=== PATIENT | male | born 1990 | race Hispanic/Latino ===

== ENCOUNTER 2018-05-25 21:38 | Emergency (ER) | payer SELFPAY ==
[2018-05-25 23:30] LABS: #Basophils 0.1 thou/uL (0.0-0.2); #Eosinphils 0.7 thou/uL (0.0-0.7); #Lymphocytes 3.1 thou/uL (1.20-3.40); #Monocytes 0.4 thou/uL (0.11-0.59); #Neutrophils 2.8 thou/uL (1.40-6.50); %Basophils 1.4 % (0.0-1.0); %Eosinophils 9.7 % (0.0-10.0); %Lymphocytes 43.9 % (21.0-51.0); %Monocytes 5.6 % (0.0-10.0); %Neutrophils 39.4 % (42.0-75.0); Hemoglobin 14.6 g/dL (14.0-18.0); Mean Corpuscular HGB CONC 33.5 g/dL (32.0-36.0); Mean Corpuscular Hemoglobin 30.3 pg (27.0-31.0); Mean Corpuscular Volume 90.4 fL (78.0-98.0); Mean Platelet Volume 8.3 fL (7.4-10.4); Platelet Count 230 thou/uL (130-400); RBC Distribution Width 11.9 % (11.5-14.5); Red Blood Cell (RBC) Count 4.81 mill/uL (4.70-6.10); White Blood Cell (WBC) Count 7.1 thou/uL (4.8-10.8)
[2018-05-25 23:48] LABS: ALT (SGPT) 18 U/L (8-55); AST (SGOT) 18 U/L (5-34); Alkaline Phosphatase 100 U/L (40-150); Anion Gap 12 mmol/L (10-20); BUN (Urea Nitrogen) 12 mg/dL (8.9-20.6); Bilirubin, Total 0.3 mg/dL (0.2-1.2); Calc. Creatinine Clearance 0 mL/min (70-130); Calcium 9.2 mg/dL (7.8-10.44); Carbon Dioxide 23 mmol/L (22-29); Chloride 108 mmol/L (98-107); Estimated GFR-MDRD Greater than 90; Globulin 2.5 g/dL (2.4-3.5); Glucose 127 mg/dL (70-105); Potassium 3.6 mmol/L (3.5-5.1); Protein, Total 6.5 g/dL (6.0-8.3); Sodium 139 mmol/L (136-145)
[2018-05-26] MEDS ORDERED: Ketorolac Tromethamine 30 MG/ML VIAL ONE (00:06)
[2018-05-26] MEDS ORDERED: Morphine 4 MG/ML VIAL ONE (00:06)
[2018-05-26] MEDS ORDERED: Dexamethasone 10 MG/ML VIAL ONE (01:05)
--- NOTE | 2018-05-26 07:48 | MRI ---
MRI OF THORACIC SPINE: INDICATION: Intractable back pain. FINDINGS: There is a chronic mild anterior wedge deformity of T8, which results in focal kyphosis of the midtho racic spine. T2-3 level reveals a right paracentral disk protrusion, which encroaches upon the right ventral hemic ord without significant cord deformity. No high-grade central canal stenosis at the T1-2, T3-4, T4-5 , T5-6, or T6-7 levels. T7-8 level reveals right asymmetric broad-based disk-osteophyte with diffuse narrowing of the disk sp lady, which is related to the above-described T8 compression deformity. Resultant ventral cord flatti ng and mass effect is present. There is also a component of intramedullary T2 signal localizing to t he anterior aspect of the spinal cord at the T7-8 level. T9-10: Left asymmetric osteophyte formation with ventral cord effacement. No significant central ca nal stenosis of T9-10, T10-11, or T11-12 level. There is no significant paraspinous soft tissue edema or fluid collection. No acute disk space edema . IMPRESSION: 1. 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 No a ssociated marrow edema. There is focal kyphosis with associated broad-based osteophyte ridge which d oes efface the ventral aspect of the thoracic spinal cord at the T7-8 level with associated abnormal T2 intramedullary hyperintensity and cord volume loss. 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 2. Additional details are described above. POS: [facility]
--- NOTE | 2018-05-26 07:57 | MRI ---
LUMBAR SPINE MRI NONCONTRAST: INDICATION: A 27-year-old male with progressive, intractable low back pain. FINDINGS: The conus medullaris is normal in morphology, terminating at the L1 level. There is loss of normal T 2 signal of the L4-5 and L5-S1 intervertebral disk. At L1-2, L2-3, and L3-4 levels, there is no sign ificant disk bulge or herniation. 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 L4-5: There is a moderate to large left paracentral disk protrusion with severe central canal stenos is, and impingement upon nerve roots of cauda equina. There is mild narrowing of each neural foramen . L5-S1: There is a moderate to large broad-based disk protrusion spanning the right paracentral to le ft subarticular zone. This does impinge the traversing S1 nerve root and crowd the right traversing S1 nerve root. There is moderate compromise of the terminal thecal sac and moderate left and mild to moderate right neural foraminal narrowing. No acute compression fracture. No significant subluxati on. No acute abnormality of the visualized retroperitoneum. IMPRESSION: Moderate to large disk protrusions at L4-5 and L5-S1 with associated compromise of the central canal and nerve roots as discussed above. POS: [facility]
== END 2018-05-26 02:25 | disposition home or self-care (01) ==
LOC: ERS 21:38
DX: M54.5 Low back pain (principal); G89.29 Other chronic pain; F17.210 Nicotine dependence, cigarettes, uncomplicated
CPT/HCPCS: 36415; 72146; 72148; 80053; 85025; 96374; 96375; J1100; J1885; J2270

== ENCOUNTER 2024-08-27 00:28 | Inpatient (IN) | payer OTHER, SELFPAY ==
[2024-08-27 01:03] LABS: #Basophils 0.10 10x3/uL (0.0-0.2); #Eosinophils 0.19 10x3/uL (0.0-0.7); #Monocytes 0.62 10x3/uL (0.11-0.59); #Neutrophils 4.57 10x3/uL (1.40-6.50); %Basophils 1.2 % (0.0-1.0); %Eosinophils 2.2 % (0.0-10.0); %Lymphocytes 35.2 % (21.0-51.0); %Monocytes 7.3 % (0.0-10.0); %Neutrophils 53.6 % (42.0-75.0); Hematocrit 44.8 % (42.0-52.0); Hemoglobin 14.9 g/dL (14.0-18.0); Mean Corpuscular Hemoglobin 27.5 pg (27.0-31.0); Mean Corpuscular Volume 82.7 fL (78.0-98.0); Platelet Count 247 10x3/uL (130-400); Red Blood Cell (RBC) Count 5.42 mill/uL (4.70-6.10); White Blood Cell (WBC) Count 8.52 10x3/uL (4.8-10.8)
[2024-08-27 01:16] LABS: ALT (SGPT) 30 U/L (Less than 45); AST (SGOT) 42 U/L (11-34); Albumin 4.5 g/dL (3.1-4.5); Alkaline Phosphatase 105 U/L (40-110); Anion Gap 17 mmol/L (10-20); BUN (Urea Nitrogen) 35 mg/dL (8.9-20.6); Bilirubin, Total 0.6 mg/dL (0.3-1.2); Calc. Creatinine Clearance 0 mL/min (70-130); Calcium 9.0 mg/dL (7.8-10.44); Carbon Dioxide 23 mmol/L (22-29); Chloride 98 mmol/L (98-107); Globulin 3.3 g/dL (2.4-3.5); Glucose 110 mg/dL (70-105); Lipase 26 U/L (8-78); Magnesium 1.9 mg/dL (1.6-2.6); Potassium 4.3 mmol/L (3.5-5.1); Sodium 134 mmol/L (136-145)
[2024-08-27] MEDS ORDERED: Furosemide 40 MG (4 mL) VIAL ONE (01:17)
[2024-08-27 01:18] LABS: Troponin I 0.022 ng/mL (< 0.028)
[2024-08-27] MEDS ORDERED: Acetaminophen 500 MG TAB ONE (02:06)
[2024-08-27] MEDS ORDERED: Ondansetron PF 4 MG/2 ML Vial IVP PRN (02:36)
[2024-08-27] MEDS ORDERED: Electrolyte Replacement Protocol 1 EACH FS SCH (03:00)
[2024-08-27 03:38] VITALS: BMI 36.3
[2024-08-27 06:06] LABS: #Basophils 0.10 10x3/uL (0.0-0.2); #Eosinophils 0.23 10x3/uL (0.0-0.7); #Monocytes 0.58 10x3/uL (0.11-0.59); #Neutrophils 4.08 10x3/uL (1.40-6.50); %Basophils 1.2 % (0.0-1.0); %Eosinophils 2.8 % (0.0-10.0); %Lymphocytes 38.2 % (21.0-51.0); %Monocytes 7.1 % (0.0-10.0); %Neutrophils 50.1 % (42.0-75.0); Hematocrit 41.1 % (42.0-52.0); Hemoglobin 13.7 g/dL (14.0-18.0); Mean Corpuscular Hemoglobin 27.5 pg (27.0-31.0); Mean Corpuscular Volume 82.5 fL (78.0-98.0); Platelet Count 223 10x3/uL (130-400); Red Blood Cell (RBC) Count 4.98 mill/uL (4.70-6.10); White Blood Cell (WBC) Count 8.15 10x3/uL (4.8-10.8)
[2024-08-27] MEDS: Furosemide 40 MG (4 mL) VIAL SLOW IVP SCH (06:08)
[2024-08-27 06:11] LABS: Anion Gap 16 mmol/L (10-20); BUN (Urea Nitrogen) 35 mg/dL (8.9-20.6); Calc. Creatinine Clearance 149 mL/min (70-130); Calcium 9.1 mg/dL (7.8-10.44); Carbon Dioxide 24 mmol/L (22-29); Chloride 97 mmol/L (98-107); Glucose 92 mg/dL (70-105); Magnesium 1.9 mg/dL (1.6-2.6); Potassium 3.6 mmol/L (3.5-5.1); Sodium 133 mmol/L (136-145); Troponin I 0.019 ng/mL (< 0.028)
[2024-08-27 08:32] LABS: Troponin I 0.014 ng/mL (< 0.028)
[2024-08-27] MEDS: Magnesium 2 GM/50 ML(in water) 2 GM in Premix 1 BAG IVPB SCH (08:47)
[2024-08-27] MEDS: Sacubitril 24MG/Valsartan 26 MG TAB PO SCH (08:48)
[2024-08-27] MEDS: Famotidine 20 MG TAB PO SCH (08:49)
[2024-08-27] MEDS: Apixaban 5 MG TAB PO SCH (08:49)
[2024-08-27 12:41] LABS: Cocaine Metabolite Screen Negative (Negative); THC/Cannabinoid Screen Negative (Negative); Tricyclic Screen PRELIM POSITIVE (Negative)
[2024-08-27] MEDS: HYDROcodone/Acetaminophen 7.5/325 mg Tablet PO PRN (13:38)
[2024-08-27] MEDS: Carvedilol 3.125 MG TAB PO SCH (17:40)
[2024-08-28] MEDS: Cyclobenzaprine 10 MG TAB PO PRN (01:36)
[2024-08-28 06:26] LABS: #Basophils 0.10 10x3/uL (0.0-0.2); #Eosinophils 0.37 10x3/uL (0.0-0.7); #Monocytes 0.44 10x3/uL (0.11-0.59); #Neutrophils 2.96 10x3/uL (1.40-6.50); %Basophils 1.5 % (0.0-1.0); %Eosinophils 5.5 % (0.0-10.0); %Lymphocytes 41.6 % (21.0-51.0); %Monocytes 6.6 % (0.0-10.0); %Neutrophils 44.4 % (42.0-75.0); Hematocrit 44.7 % (42.0-52.0); Hemoglobin 14.3 g/dL (14.0-18.0); Mean Corpuscular Hemoglobin 26.7 pg (27.0-31.0); Mean Corpuscular Volume 83.6 fL (78.0-98.0); Platelet Count 223 10x3/uL (130-400); Red Blood Cell (RBC) Count 5.35 mill/uL (4.70-6.10); White Blood Cell (WBC) Count 6.68 10x3/uL (4.8-10.8)
[2024-08-28 06:41] LABS: Anion Gap 16 mmol/L (10-20); BUN (Urea Nitrogen) 39 mg/dL (8.9-20.6); Calc. Creatinine Clearance 146 mL/min (70-130); Calcium 9.0 mg/dL (7.8-10.44); Carbon Dioxide 24 mmol/L (22-29); Chloride 96 mmol/L (98-107); Glucose 121 mg/dL (70-105); Magnesium 2.3 mg/dL (1.6-2.6); Potassium 3.9 mmol/L (3.5-5.1); Sodium 132 mmol/L (136-145)
[2024-08-28] MEDS: Spironolactone 25 MG TAB PO SCH (08:48)
[2024-08-28] MEDS: HYDROcodone/Acetaminophen 10/325 mg Tablet PO PRN (16:50)
[2024-08-29 05:54] LABS: #Basophils 0.08 10x3/uL (0.0-0.2); #Eosinophils 0.28 10x3/uL (0.0-0.7); #Monocytes 0.39 10x3/uL (0.11-0.59); #Neutrophils 3.35 10x3/uL (1.40-6.50); %Basophils 1.2 % (0.0-1.0); %Eosinophils 4.3 % (0.0-10.0); %Lymphocytes 35.9 % (21.0-51.0); %Monocytes 6.1 % (0.0-10.0); %Neutrophils 52.0 % (42.0-75.0); Hematocrit 39.3 % (42.0-52.0); Hemoglobin 13.0 g/dL (14.0-18.0); Mean Corpuscular Hemoglobin 27.6 pg (27.0-31.0); Mean Corpuscular Volume 83.4 fL (78.0-98.0); Platelet Count 208 10x3/uL (130-400); Red Blood Cell (RBC) Count 4.71 mill/uL (4.70-6.10); White Blood Cell (WBC) Count 6.44 10x3/uL (4.8-10.8)
[2024-08-29 06:29] LABS: Anion Gap 15 mmol/L (10-20); BUN (Urea Nitrogen) 38 mg/dL (8.9-20.6); Calc. Creatinine Clearance 156 mL/min (70-130); Calcium 8.9 mg/dL (7.8-10.44); Carbon Dioxide 23 mmol/L (22-29); Chloride 96 mmol/L (98-107); Glucose 117 mg/dL (70-105); Magnesium 2.0 mg/dL (1.6-2.6); Potassium 3.4 mmol/L (3.5-5.1); Sodium 131 mmol/L (136-145)
[2024-08-29] MEDS: Magnesium 2 GM/50 ML(in water) 2 GM in Premix 1 BAG IVPB SCH (07:49)
[2024-08-30] MEDS: Transdermal Patch Removal LIDOCAINE TOP SCH (04:11)
[2024-08-30 09:41] LABS: Anion Gap 16 mmol/L (10-20); BUN (Urea Nitrogen) 34 mg/dL (8.9-20.6); Calc. Creatinine Clearance 159 mL/min (70-130); Calcium 9.0 mg/dL (7.8-10.44); Carbon Dioxide 24 mmol/L (22-29); Chloride 96 mmol/L (98-107); Glucose 89 mg/dL (70-105); Magnesium 2.1 mg/dL (1.6-2.6); Potassium 4.0 mmol/L (3.5-5.1); Sodium 132 mmol/L (136-145)
[2024-08-30] MEDS: Furosemide 40 MG (4 mL) VIAL SLOW IVP SCH (12:12)
[2024-08-30] MEDS: Acetaminophen 325 MG TAB PO PRN (17:14)
[2024-08-30] MEDS ORDERED: Furosemide 40 MG (4 mL) VIAL SLOW IVP SCH (21:00)
[2024-08-30] MEDS: Ketorolac Tromethamine 30 MG (1 mL) VIAL IVP SCH (23:32)
[2024-08-31] MEDS: Furosemide 40 MG (4 mL) VIAL SLOW IVP SCH (05:26)
[2024-08-31 06:05] LABS: Anion Gap 15 mmol/L (10-20); BUN (Urea Nitrogen) 40 mg/dL (8.9-20.6); Calc. Creatinine Clearance 137 mL/min (70-130); Calcium 8.9 mg/dL (7.8-10.44); Carbon Dioxide 24 mmol/L (22-29); Chloride 97 mmol/L (98-107); Glucose 102 mg/dL (70-105); Magnesium 2.2 mg/dL (1.6-2.6); Potassium 3.5 mmol/L (3.5-5.1); Sodium 132 mmol/L (136-145)
[2024-09-01 05:24] LABS: #Basophils 0.08 10x3/uL (0.0-0.2); #Eosinophils 0.44 10x3/uL (0.0-0.7); #Monocytes 0.56 10x3/uL (0.11-0.59); #Neutrophils 4.16 10x3/uL (1.40-6.50); %Basophils 1.1 % (0.0-1.0); %Eosinophils 6.2 % (0.0-10.0); %Lymphocytes 26.4 % (21.0-51.0); %Monocytes 7.8 % (0.0-10.0); %Neutrophils 58.2 % (42.0-75.0); Hematocrit 42.2 % (42.0-52.0); Hemoglobin 13.6 g/dL (14.0-18.0); Mean Corpuscular Hemoglobin 27.6 pg (27.0-31.0); Mean Corpuscular Volume 85.6 fL (78.0-98.0); Platelet Count 170 10x3/uL (130-400); Red Blood Cell (RBC) Count 4.93 mill/uL (4.70-6.10); White Blood Cell (WBC) Count 7.15 10x3/uL (4.8-10.8)
[2024-09-01 05:40] LABS: Anion Gap 13 mmol/L (10-20); BUN (Urea Nitrogen) 35 mg/dL (8.9-20.6); Calc. Creatinine Clearance 159 mL/min (70-130); Calcium 9.3 mg/dL (7.8-10.44); Carbon Dioxide 27 mmol/L (22-29); Chloride 97 mmol/L (98-107); Glucose 97 mg/dL (70-105); Magnesium 2.1 mg/dL (1.6-2.6); Potassium 4.0 mmol/L (3.5-5.1); Sodium 133 mmol/L (136-145)
[2024-09-01] MEDS: Amoxicillin/Potassium Clav 875 MG TAB PO SCH (09:26)
[2024-09-02 06:01] LABS: #Basophils 0.08 10x3/uL (0.0-0.2); #Eosinophils 0.50 10x3/uL (0.0-0.7); #Monocytes 0.51 10x3/uL (0.11-0.59); #Neutrophils 4.52 10x3/uL (1.40-6.50); %Basophils 1.1 % (0.0-1.0); %Eosinophils 6.7 % (0.0-10.0); %Lymphocytes 24.8 % (21.0-51.0); %Monocytes 6.8 % (0.0-10.0); %Neutrophils 60.2 % (42.0-75.0); Hematocrit 43.6 % (42.0-52.0); Hemoglobin 14.0 g/dL (14.0-18.0); Mean Corpuscular Hemoglobin 26.7 pg (27.0-31.0); Mean Corpuscular Volume 83.2 fL (78.0-98.0); Platelet Count 172 10x3/uL (130-400); Red Blood Cell (RBC) Count 5.24 mill/uL (4.70-6.10); White Blood Cell (WBC) Count 7.50 10x3/uL (4.8-10.8)
[2024-09-02 06:22] LABS: Anion Gap 14 mmol/L (10-20); BUN (Urea Nitrogen) 33 mg/dL (8.9-20.6); Calc. Creatinine Clearance 160 mL/min (70-130); Calcium 9.7 mg/dL (7.8-10.44); Carbon Dioxide 25 mmol/L (22-29); Chloride 97 mmol/L (98-107); Glucose 95 mg/dL (70-105); Potassium 4.0 mmol/L (3.5-5.1); Sodium 132 mmol/L (136-145)
[2024-09-03 05:15] LABS: #Basophils 0.06 10x3/uL (0.0-0.2); #Eosinophils 0.49 10x3/uL (0.0-0.7); #Monocytes 0.53 10x3/uL (0.11-0.59); #Neutrophils 3.34 10x3/uL (1.40-6.50); %Basophils 0.9 % (0.0-1.0); %Eosinophils 7.6 % (0.0-10.0); %Lymphocytes 31.4 % (21.0-51.0); %Monocytes 8.2 % (0.0-10.0); %Neutrophils 51.6 % (42.0-75.0); Hematocrit 40.1 % (42.0-52.0); Hemoglobin 13.3 g/dL (14.0-18.0); Mean Corpuscular Hemoglobin 27.5 pg (27.0-31.0); Mean Corpuscular Volume 82.9 fL (78.0-98.0); Platelet Count 172 10x3/uL (130-400); Red Blood Cell (RBC) Count 4.84 mill/uL (4.70-6.10); White Blood Cell (WBC) Count 6.47 10x3/uL (4.8-10.8)
[2024-09-03 05:32] LABS: Anion Gap 16 mmol/L (10-20); BUN (Urea Nitrogen) 32 mg/dL (8.9-20.6); Calc. Creatinine Clearance 141 mL/min (70-130); Calcium 9.2 mg/dL (7.8-10.44); Carbon Dioxide 22 mmol/L (22-29); Chloride 98 mmol/L (98-107); Glucose 116 mg/dL (70-105); Potassium 4.1 mmol/L (3.5-5.1); Sodium 132 mmol/L (136-145)
[2024-09-03] MEDS ORDERED: Furosemide 100 MG (10 mL) VIAL SLOW IVP SCH (18:31)
[2024-09-04 06:27] LABS: #Basophils 0.06 10x3/uL (0.0-0.2); #Eosinophils 0.42 10x3/uL (0.0-0.7); #Monocytes 0.59 10x3/uL (0.11-0.59); #Neutrophils 3.46 10x3/uL (1.40-6.50); %Basophils 1.0 % (0.0-1.0); %Eosinophils 6.7 % (0.0-10.0); %Lymphocytes 27.6 % (21.0-51.0); %Monocytes 9.4 % (0.0-10.0); %Neutrophils 54.8 % (42.0-75.0); Hematocrit 42.0 % (42.0-52.0); Hemoglobin 13.5 g/dL (14.0-18.0); Mean Corpuscular Hemoglobin 27.3 pg (27.0-31.0); Mean Corpuscular Volume 84.8 fL (78.0-98.0); Platelet Count 172 10x3/uL (130-400); Red Blood Cell (RBC) Count 4.95 mill/uL (4.70-6.10); White Blood Cell (WBC) Count 6.30 10x3/uL (4.8-10.8)
[2024-09-04 06:44] LABS: Anion Gap 14 mmol/L (10-20); BUN (Urea Nitrogen) 29 mg/dL (8.9-20.6); Calc. Creatinine Clearance 145 mL/min (70-130); Calcium 9.1 mg/dL (7.8-10.44); Carbon Dioxide 26 mmol/L (22-29); Chloride 96 mmol/L (98-107); Glucose 91 mg/dL (70-105); Potassium 4.1 mmol/L (3.5-5.1); Sodium 132 mmol/L (136-145)
[2024-09-05 04:18] LABS: #Basophils 0.06 10x3/uL (0.0-0.2); #Eosinophils 0.46 10x3/uL (0.0-0.7); #Monocytes 0.57 10x3/uL (0.11-0.59); #Neutrophils 3.39 10x3/uL (1.40-6.50); %Basophils 0.9 % (0.0-1.0); %Eosinophils 7.0 % (0.0-10.0); %Lymphocytes 31.5 % (21.0-51.0); %Monocytes 8.7 % (0.0-10.0); %Neutrophils 51.7 % (42.0-75.0); Hematocrit 41.3 % (42.0-52.0); Hemoglobin 13.1 g/dL (14.0-18.0); Mean Corpuscular Hemoglobin 27.2 pg (27.0-31.0); Mean Corpuscular Volume 85.7 fL (78.0-98.0); Platelet Count 167 10x3/uL (130-400); Red Blood Cell (RBC) Count 4.82 mill/uL (4.70-6.10); White Blood Cell (WBC) Count 6.55 10x3/uL (4.8-10.8)
[2024-09-05 04:41] LABS: Anion Gap 12 mmol/L (10-20); BUN (Urea Nitrogen) 26 mg/dL (8.9-20.6); Calc. Creatinine Clearance 161 mL/min (70-130); Calcium 9.2 mg/dL (7.8-10.44); Carbon Dioxide 26 mmol/L (22-29); Chloride 100 mmol/L (98-107); Glucose 91 mg/dL (70-105); Potassium 4.3 mmol/L (3.5-5.1); Sodium 134 mmol/L (136-145)
[2024-09-05] MEDS: Furosemide 20 MG TAB PO SCH (14:48)
[2024-09-05] MEDS: Furosemide 100 MG (10 mL) VIAL SLOW IVP SCH (23:02)
[2024-09-06] MEDS: Furosemide 100 MG (10 mL) VIAL SLOW IVP SCH (05:39)
[2024-09-06] MEDS ORDERED: Furosemide 40 MG (4 mL) VIAL SLOW IVP SCH (09:00)
[2024-09-07 05:21] LABS: #Basophils 0.06 10x3/uL (0.0-0.2); #Eosinophils 0.46 10x3/uL (0.0-0.7); #Monocytes 0.68 10x3/uL (0.11-0.59); #Neutrophils 3.75 10x3/uL (1.40-6.50); %Basophils 0.8 % (0.0-1.0); %Eosinophils 6.4 % (0.0-10.0); %Lymphocytes 30.7 % (21.0-51.0); %Monocytes 9.5 % (0.0-10.0); %Neutrophils 52.2 % (42.0-75.0); Hematocrit 40.2 % (42.0-52.0); Hemoglobin 13.3 g/dL (14.0-18.0); Mean Corpuscular Hemoglobin 27.8 pg (27.0-31.0); Mean Corpuscular Volume 83.9 fL (78.0-98.0); Platelet Count 162 10x3/uL (130-400); Red Blood Cell (RBC) Count 4.79 mill/uL (4.70-6.10); White Blood Cell (WBC) Count 7.19 10x3/uL (4.8-10.8)
[2024-09-07 05:36] LABS: Anion Gap 15 mmol/L (10-20); BUN (Urea Nitrogen) 28 mg/dL (8.9-20.6); Calc. Creatinine Clearance 137 mL/min (70-130); Calcium 9.2 mg/dL (7.8-10.44); Carbon Dioxide 27 mmol/L (22-29); Chloride 97 mmol/L (98-107); Glucose 90 mg/dL (70-105); Potassium 3.7 mmol/L (3.5-5.1); Sodium 135 mmol/L (136-145)
[2024-09-08 05:39] LABS: #Basophils 0.08 10x3/uL (0.0-0.2); #Eosinophils 0.46 10x3/uL (0.0-0.7); #Monocytes 0.55 10x3/uL (0.11-0.59); #Neutrophils 2.98 10x3/uL (1.40-6.50); %Basophils 1.2 % (0.0-1.0); %Eosinophils 7.1 % (0.0-10.0); %Lymphocytes 37.2 % (21.0-51.0); %Monocytes 8.4 % (0.0-10.0); %Neutrophils 45.8 % (42.0-75.0); Hematocrit 44.0 % (42.0-52.0); Hemoglobin 14.2 g/dL (14.0-18.0); Mean Corpuscular Hemoglobin 26.9 pg (27.0-31.0); Mean Corpuscular Volume 83.5 fL (78.0-98.0); Platelet Count 196 10x3/uL (130-400); Red Blood Cell (RBC) Count 5.27 mill/uL (4.70-6.10); White Blood Cell (WBC) Count 6.51 10x3/uL (4.8-10.8)
[2024-09-08 05:53] LABS: Anion Gap 15 mmol/L (10-20); BUN (Urea Nitrogen) 29 mg/dL (8.9-20.6); Calc. Creatinine Clearance 131 mL/min (70-130); Calcium 9.8 mg/dL (7.8-10.44); Carbon Dioxide 29 mmol/L (22-29); Chloride 97 mmol/L (98-107); Glucose 82 mg/dL (70-105); Potassium 3.5 mmol/L (3.5-5.1); Sodium 137 mmol/L (136-145)
[2024-09-08] MEDS: Spironolactone 25 MG TAB PO SCH (09:04)
[2024-09-08] MEDS: Torsemide 20 MG TAB PO SCH (09:10)
[2024-09-08] MEDS: Acetaminophen 500 MG TAB PO SCH (10:20)
[2024-09-09 04:52] LABS: ALT (SGPT) 13 U/L (Less than 45); AST (SGOT) 20 U/L (11-34); Albumin 3.8 g/dL (3.1-4.5); Alkaline Phosphatase 74 U/L (40-110); Anion Gap 12 mmol/L (10-20); BUN (Urea Nitrogen) 32 mg/dL (8.9-20.6); Bilirubin, Total 0.5 mg/dL (0.3-1.2); Calc. Creatinine Clearance 118 mL/min (70-130); Calcium 9.3 mg/dL (7.8-10.44); Carbon Dioxide 28 mmol/L (22-29); Chloride 102 mmol/L (98-107); Globulin 3.1 g/dL (2.4-3.5); Glucose 86 mg/dL (70-105); Potassium 4.1 mmol/L (3.5-5.1); Sodium 138 mmol/L (136-145)
[2024-09-09] MEDS: Digoxin 0.5 MG/2 ML AMP SLOW IVP SCH ×2 (09:53→12:19)
[2024-09-09] MEDS: Digoxin 0.25 MG TAB PO SCH (14:16)
[2024-09-09] MEDS: Pantoprazole 40 MG DR.TAB PO SCH (14:17)
[2024-09-10] MEDS: Digoxin 0.25 MG TAB PO SCH (09:48)
[2024-09-10] MEDS: Pantoprazole 40 MG DR.TAB PO SCH (09:49)
[2024-09-11 05:01] LABS: Anion Gap 13 mmol/L (10-20); BUN (Urea Nitrogen) 22 mg/dL (8.9-20.6); Calc. Creatinine Clearance 134 mL/min (70-130); Calcium 9.6 mg/dL (7.8-10.44); Carbon Dioxide 23 mmol/L (22-29); Chloride 106 mmol/L (98-107); Glucose 86 mg/dL (70-105); Potassium 3.9 mmol/L (3.5-5.1); Sodium 138 mmol/L (136-145)
[2024-09-11 19:15] VITALS: BMI 36.9
[2024-09-11] MEDS: Acetaminophen 500 MG TAB PO PRN (22:04)
[2024-09-12 05:00] LABS: Anion Gap 12 mmol/L (10-20); BUN (Urea Nitrogen) 21 mg/dL (8.9-20.6); Calc. Creatinine Clearance 160 mL/min (70-130); Calcium 9.6 mg/dL (7.8-10.44); Carbon Dioxide 25 mmol/L (22-29); Chloride 107 mmol/L (98-107); Glucose 88 mg/dL (70-105); Potassium 4.3 mmol/L (3.5-5.1); Sodium 140 mmol/L (136-145)
[2024-09-12] MEDS: Fioricet 325/50/40 mg Tablet PO PRN (14:32)
[2024-09-13 05:10] LABS: #Basophils 0.09 10x3/uL (0.0-0.2); #Eosinophils 0.49 10x3/uL (0.0-0.7); #Monocytes 0.48 10x3/uL (0.11-0.59); #Neutrophils 3.46 10x3/uL (1.40-6.50); %Basophils 1.4 % (0.0-1.0); %Eosinophils 7.6 % (0.0-10.0); %Lymphocytes 29.6 % (21.0-51.0); %Monocytes 7.4 % (0.0-10.0); %Neutrophils 53.2 % (42.0-75.0); Hematocrit 43.3 % (42.0-52.0); Hemoglobin 14.5 g/dL (14.0-18.0); Mean Corpuscular Hemoglobin 27.5 pg (27.0-31.0); Mean Corpuscular Volume 82.0 fL (78.0-98.0); Platelet Count 198 10x3/uL (130-400); Red Blood Cell (RBC) Count 5.28 mill/uL (4.70-6.10); White Blood Cell (WBC) Count 6.49 10x3/uL (4.8-10.8)
[2024-09-13 05:39] LABS: Digoxin 0.51 ng/mL (0.8-2.0)
[2024-09-13 05:49] LABS: Anion Gap 13 mmol/L (10-20); BUN (Urea Nitrogen) 18 mg/dL (8.9-20.6); Calc. Creatinine Clearance 171 mL/min (70-130); Calcium 9.2 mg/dL (7.8-10.44); Carbon Dioxide 21 mmol/L (22-29); Chloride 111 mmol/L (98-107); Glucose 83 mg/dL (70-105); Potassium 4.2 mmol/L (3.5-5.1); Sodium 141 mmol/L (136-145)
[2024-09-13] MEDS: Digoxin 0.125 MG TAB PO SCH (09:49)
[2024-09-13 11:55] VITALS: BP 104/57; TEMP 97.4
[2024-09-13] MEDS ORDERED: Carvedilol 3.125 MG TAB PO SCH (17:00)
== END 2024-09-13 13:41 | disposition home or self-care (01) | DRG 292 ==
LOC: ERS 00:28 → OBS 03:00 → 2NO 08-30 16:46
PROVIDERS: ADMIT Student in an Organized Health Care Education/Training Program; ATTEND Family Medicine
DX: I50.23 Acute on chronic systolic (congestive) heart failure (principal); C81.90 Hodgkin lymphoma, unspecified, unspecified site; E87.1 Hypo-osmolality and hyponatremia; I42.0 Dilated cardiomyopathy; Z51.5 Encounter for palliative care; G47.33 Obstructive sleep apnea (adult) (pediatric); F41.9 Anxiety disorder, unspecified; K02.9 Dental caries, unspecified; N18.31 Chronic kidney disease, stage 3a; I51.3 Intracardiac thrombosis, not elsewhere classified; M54.9 Dorsalgia, unspecified; F19.10 Other psychoactive substance abuse, uncomplicated; Z79.01 Long term (current) use of anticoagulants; Z79.899 Other long term (current) drug therapy; Z98.890 Other specified postprocedural states; Z80.9 Family history of malignant neoplasm, unspecified; Z92.21 Personal history of antineoplastic chemotherapy; Z87.891 Personal history of nicotine dependence
CPT/HCPCS: 36415; 36416; 71045; 80048; 80053; 80162; 80306; 83690; 83735; 83880; 84100; 84443; 84484; 85025; 93005; 93306; 93798; 94660; 96374; 96375; 97139; J1160; J1250; J1885; J1940; J2270; J3475